=== PATIENT | female | born 1985 | race Caucasian/White ===

== ENCOUNTER 2017-12-14 21:04 | Emergency (ER) | payer BC ==
[2017-12-14] MEDS ORDERED: PROMETHAZINE HYDROCHLORIDE 25 MG/ML SOL ONE (21:30)
[2017-12-14] MEDS ORDERED: KETOROLAC TROMETHAMINE 30 MG/ML SOL ONE (21:30)
[2017-12-14] MEDS ORDERED: KETOROLAC TROMETHAMINE 30 MG/ML SOL IM ONE (21:35)
[2017-12-14] MEDS ORDERED: PROMETHAZINE HYDROCHLORIDE 25 MG/ML SOL IM ONE (21:36)
[2017-12-14 21:40] VITALS: TEMP 97.2
[2017-12-14 22:21] VITALS: BP 116/74; PULSE 71; RESP 18; O2SAT 99
== END 2017-12-14 22:04 | disposition home or self-care (01) ==
LOC: ED 21:04
DX: G43.909 Migraine, unspecified, not intractable, without status migrainosus (principal)
CPT/HCPCS: 99283; J1885; J2550

== ENCOUNTER 2018-09-01 18:46 | Emergency (ER) | payer BC ==
[2018-09-01 19:21] VITALS: TEMP 96.9
[2018-09-01] MEDS ORDERED: SODIUM CHLORIDE 0.9% 1000ML 1,000 ML IV ONE (19:25)
[2018-09-01 19:40] LABS: BASOPHILS % (AUTO) 1 % (0-3); EOSINOPHILS % (AUTO) 3 % (0-9); HEMATOCRIT 38 % (35-47); HEMOGLOBIN 12.8 gm/dl (12.0-15.5); MEAN CORPUSCULAR HEMOGLOBIN 28.4 pg (27.0-32.0); MEAN CORPUSCULAR HGB CONC 33.8 gm/dl (32.0-36.0); MEAN CORPUSCULAR VOLUME 84 fL (81-99); MONOCYTES % (AUTO) 4.9 % (0-12); NEUTROPHILS % (AUTO) 56.1 % (37-80)
[2018-09-01 19:48] LABS: CREATININE 0.77 mg/dl (0.60-1.00); POTASSIUM 3.3 mMol/L (3.5-5.1)
[2018-09-01 19:59] LABS: CALCIUM 8.9 mg/dl (8.5-10.1)
[2018-09-01 21:46] VITALS: BP 110/66; PULSE 74; RESP 18; O2SAT 98
== END 2018-09-01 21:40 | disposition home or self-care (01) ==
LOC: ED 18:46
DX: O03.1 Delayed or excessive hemorrhage following incomplete spontaneous abortion (principal)
CPT/HCPCS: 80048; 85025; 96365; 99283; 99284